=== PATIENT | male | born 1975 | race Caucasian/White ===

== ENCOUNTER 2016-03-26 23:13 | Emergency (ER) | payer SELFPAY ==
[2016-03-26] MEDS ORDERED: IPRATROPIUM/ALBUTEROL 3 ML VIAL NEB ONE ×2 (23:22→23:37)
--- NOTE | 2016-03-26 23:43 | ED.PDOC ---
History of Present Illness - General Chief Complaint: Respiratory Problem Stated Complaint: short of breath Time Seen by Provider: 03/26/16 23:16 Source: patient - History of Present Illness Initial Comments: Lito 40 y/o male with history of asthma stated he strted with non productive cough yesterday then developed fever today.No flu immunization,no ill contact. Timing/Duration: 24 hours Severity: moderate Improving Factors: nothing Worsening Factors: nothing Associated Symptoms: fever/chills, shortness of breath Allergies/Adverse Reactions: Allergies NO KNOWN ALLERGY Allergy (Verified 03/26/16 23:15) Home Medications: Ambulatory Orders Amoxicillin [Amoxil] 1,000 mg PO BID #40 cap 03/27/16 Benzonatate Perles [Tessalon Perles] 200 mg PO BID #30 cap 03/27/16 Ipratropium/Albuterol [Duoneb] 3 ml NEB QID #30 vial 03/27/16 Oseltamivir Phosphate [Tamiflu] 75 mg PO BID #10 cap 03/27/16 Review of Systems - Review of Systems Constitutional: States: see HPI, chills, fever EENTM: States: nose congestion Respiratory: States: see HPI, cough Cardiology: States: no symptoms reported Gastrointestinal/Abdominal: States: no symptoms reported Genitourinary: States: no symptoms reported Musculoskeletal: States: no symptoms reported Skin: States: no symptoms reported Neurological: States: no symptoms reported Endocrine: States: no symptoms reported Hematologic/Lymphatic: States: no symptoms reported Past Medical History (General) - Patient Medical History Hx Asthma: Yes Surgical History: no surgical history - Vaccination History Hx Tetanus, Diphtheria Vaccination: No Hx Influenza Vaccination: No Hx Pneumococcal Vaccination: No Immunizations Up to Date: No - Social History Hx Alcohol Use: No Hx Substance Use: Yes Hx Substance Use Treatment: No Hx Depression: No - Activities of Daily Living Patient Lives Alone: No - lives with friend - Female History Patient is a Female of Child Bearing Age (10 -59 yrs old): No Patient : No Family Medical History - Family History Mother Family History: Unknown Living Status: Unknown Hx Family Asthma: Yes - multiple family members Physical Exam - Physical Exam General Appearance: Alert, No apparent distress Eye Exam: bilateral normal Ears, Nose, Throat: hearing grossly normal, normal ENT inspection, nasal congestion Neck: non-tender, full range of motion, supple Respiratory: chest non-tender, decreased breath sounds, wheezing Cardiovascular/Chest: normal peripheral pulses, regular rate, rhythm, no JVD, no murmur Gastrointestinal/Abdominal: normal bowel sounds, non tender, soft, no organomegaly Back Exam: normal inspection, no CVA tenderness, no vertebral tenderness Extremity: normal range of motion, non-tender Neurologic: alert, oriented x 3 Skin Exam: normal color, warm/dry Lymphatic: no adenopathy Progress - Results/Orders Results/Orders: 03/26/16 23:45 IV Care:Saline Lock per Protoc QSHIFT Flu A+B (PCR) [INFLUENZA A & B BY PCR] Stat 03/27/16 01:03 cefTRIAXone SODIUM [Rocephin] 1 gm Sodium Chl 0.9% 50Ml Min-Bag+ [NS 50ml MINI -BAG+] 50 ml IVPB ONCE 03/27/16 01:05 ABG [Arterial Blood Gas] Stat SVN/Updraft Therapy .ONCE 03/27/16 09:00 O2 [Oxygen] Daily Updrafts Daily Updrafts Daily Laboratory Results WBC 19.8 K/mm3 (4.8-10.8) H 03/26/16 23:34 RBC 5.47 M/mm3 (4.70-6.10) 03/26/16 23:34 Hgb 15.5 gm/dL (14.0-18.0) 03/26/16 23:34 Hct 45.2 % (42.0-52.0) 03/26/16 23:34 MCV 82.7 fl (80.0-94.0) 03/26/16 23:34 MCH 28.3 pg (27.0-31.0) 03/26/16 23:34 MCHC 34.2 g/dL (33.0-37.0) 03/26/16 23:34 RDW 13.3 % (11.5-14.5) 03/26/16 23:34 Plt Count 273 K/mm3 (130-400) 03/26/16 23:34 MPV 8.6 fl (7.40-10.4) 03/26/16 23:34 Absolute Neuts (auto) 16.50 K/uL (1.8-6.8) H 03/26/16 23:34 Absolute Lymphs (auto) 1.70 K/uL (1.0-3.4) 03/26/16 23:34 Absolute Monos (auto) 1.50 K/uL (0.2-0.8) H 03/26/16 23:34 Absolute Eos (auto) 0.00 K/uL (0.0-0.4) 03/26/16 23:34 Absolute Basos (auto) 0.10 K/uL (0.0-0.1) 03/26/16 23:34 Neutrophils % 83.1 % (42.0-78.0) H 03/26/16 23:34 Lymphocytes % 8.5 % (20.0-50.0) L 03/26/16 23:34 Monocytes % 7.6 % (2.0-9.0) 03/26/16 23:34 Eosinophils % 0.1 % (1.0-5.0) L 03/26/16 23:34 Basophils % 0.7 % (0.0-2.0) 03/26/16 23:34 Sodium 134 mmol/L (135-145) L 03/26/16 23:35 Potassium 3.6 mmol/L (3.6-5.0) 03/26/16 23:35 Chloride 102 mmol/L (101-111) 03/26/16 23:35 Carbon Dioxide 22 mmol/L (21-31) 03/26/16 23:35 Anion Gap 13.6 (12-18) 03/26/16 23:35 BUN 10 mg/dL (7-18) 03/26/16 23:35 Creatinine 0.82 mg/dL (0.6-1.3) 03/26/16 23:35 BUN/Creatinine Ratio 12.2 (10-20) 03/26/16 23:35 Random Glucose 98 mg/dL (70-105) 03/26/16 23:35 Serum Osmolality 267.3 mOsm/L (275-295) L 03/26/16 23:35 Lactic Acid 1.0 mmol/L (0.5-2.2) 03/26/16 23:50 Calcium 8.7 mg/dL (8.4-10.2) 03/26/16 23:35 Total Bilirubin 1.4 mg/dL (0.2-1.0) H 03/26/16 23:35 AST 33 IU/L (10-42) 03/26/16 23:35 ALT 73 IU/L (10-60) H 03/26/16 23:35 Alkaline Phosphatase 41 IU/L (42-121) L 03/26/16 23:35 Serum Total Protein 7.3 gm/dL (6.4-8.2) 03/26/16 23:35 Albumin 3.7 g/dl (3.2-5.5) 03/26/16 23:35 Globulin 3.6 gm/dL (2.3-3.5) H 03/26/16 23:35 Albumin/Globulin Ratio 1.0 (1.1-1.9) L 03/26/16 23:35 Flu swab negative - EKG/XRAY/CT XRAY: chest - no acute abnormality noted Departure - Departure Clinical Impression: Acute bronchitis Qualifiers: Bronchitis organism: unspecified organism Qualifier Code: (J20.9) Acute bronchitis, unspecified Time of Disposition: :18 Disposition: Discharge to Home or Self Care Condition: Good Departure Forms: ED Discharge - Pt. Copy, Patient Portal Self Enrollment Instructions: DI for Acute Bronchitis, Reasons to Quit Smoking, How to Quit Smoking, Tips to Help You Stop Smoking, Smoking Cessation Drugs: Nicotine Replacement Products Prescriptions: Amoxicillin [Amoxil] 1,000 mg PO BID #40 cap Ipratropium/Albuterol [Duoneb] 3 ml NEB QID #30 vial Oseltamivir Phosphate [Tamiflu] 75 mg PO BID #10 cap Benzonatate Perles [Tessalon Perles] 200 mg PO BID #30 cap Home Medications: Ambulatory Orders Amoxicillin [Amoxil] 1,000 mg PO BID #40 cap 03/27/16 Benzonatate Perles [Tessalon Perles] 200 mg PO BID #30 cap 03/27/16 Ipratropium/Albuterol [Duoneb] 3 ml NEB QID #30 vial 03/27/16 Oseltamivir Phosphate [Tamiflu] 75 mg PO BID #10 cap 03/27/16 Additional Instructions: RETURN TO EMERGENCY ROOM NEEDED
--- NOTE | 2016-03-26 23:52 | RAD ---
EXAM DESCRIPTION: Chest,1 View CLINICAL HISTORY: 40 years Male sob COMPARISON: 08/09/2008. FINDINGS: The cardiomediastinal silhouette appears unremarkable.The lungs appear hyperexpanded which is similar compared to the previous study.Mild scarring in the mid right lung which appears similar.No consolidating infiltrates or pleural effusions.No pneumothorax. IMPRESSION: No acute abnormality is identified. Electronically signed by: Neeraj Bond MD 03/26/2016 11:51 PM CORN CUTTER
[2016-03-26] MEDS ORDERED: ACETAMINOPHEN 500 MG TAB PO ONE (23:57)
[2016-03-27] MEDS ORDERED: cefTRIAXone SODIUM 1 GM in SODIUM CHL 0.9% 50ML MIN-BAG+ 50 ML IVPB ONE (01:03)
[2016-03-27] MEDS ORDERED: OSELTAMIVIR 75 MG CAP PO ONE (01:03)
[2016-03-27] MEDS ORDERED: IPRATROPIUM/ALBUTEROL 3 ML VIAL NEB ONE (01:04)
[2016-03-27] MEDS ORDERED: AZITHROMYCIN 250 MG TAB PO ONE (01:04)
[2016-03-27] MEDS ORDERED: cefTRIAXone SODIUM 1 GM VIAL ONE (01:29)
[2016-03-27] MEDS ORDERED: SODIUM CHL 0.9% 50ML MIN-BAG+ 50 ML IVPB ONE (01:30)
[2016-03-27] MEDS ORDERED: predniSONE 20 MG TAB PO ONE (02:30)
[2016-03-27 06:24] VITALS: O2SAT 92
[2016-03-27 08:02] VITALS: BP 120/70
[2016-03-27 08:03] VITALS: TEMP 98
--- NOTE | 2016-04-13 23:57 | RAD ---
EXAM DESCRIPTION: Chest,1 View CLINICAL HISTORY: 40 years Male sob COMPARISON: 08/09/2008. FINDINGS: The cardiomediastinal silhouette appears unremarkable.The lungs appear hyperexpanded which is similar compared to the previous study.Mild scarring in the mid right lung which appears similar.No consolidating infiltrates or pleural effusions.No pneumothorax. IMPRESSION: No acute abnormality is identified. Electronically signed by: Neeraj Bond MD 03/26/2016 11:51 PM MACHINE REPAIRER MAINTENANCE
--- NOTE | 2016-04-14 08:03 | RAD ---
EXAM DESCRIPTION: Chest,1 View CLINICAL HISTORY: 40 years Male sob COMPARISON: 08/09/2008. FINDINGS: The cardiomediastinal silhouette appears unremarkable.The lungs appear hyperexpanded which is similar compared to the previous study.Mild scarring in the mid right lung which appears similar.No consolidating infiltrates or pleural effusions.No pneumothorax. IMPRESSION: No acute abnormality is identified. Electronically signed by: Neeraj Bond MD 03/26/2016 11:51 PM RETAIL STOCK CLERK
== END 2016-03-27 08:00 | disposition home or self-care (01) ==
LOC: ER 23:13
DX: J20.9 Acute bronchitis, unspecified (principal); J45.909 Unspecified asthma, uncomplicated; F17.200 Nicotine dependence, unspecified, uncomplicated